=== PATIENT | male | born 1940 | race Caucasian/White ===

== ENCOUNTER 2016-07-05 06:57 | Day surgery (SDC) | payer MEDICARE ==
[~2016-07-05] VITALS: Ht 180.3 cm; Wt 110.4 kg
[~2016-07-05 06:57] MED LIST: ATEN-36 PO; DOXA1TAB PO; FURO-35 PO; POTA99TA16 PO; RIVA20TA PO; VALS40TA4 PO
[2016-07-05 07:00] VITALS: Ht 180.3 cm; Wt 110.4 kg
[2016-07-05] MEDS ORDERED: LIDOCAINE 1% (10mg/ml) 2ml SDV INJ ONE (07:00)
[2016-07-05] MEDS ORDERED: LR 1,000 ML IV SCH (07:00)
--- OUTSIDE RECORDS SUMMARY | 2016-07-05 07:09 | XMS REPORT | Referral Summary ---
Author Author [facility] Organization [facility] Address Unknown Phone Unavailable Care Team Providers Care Speech Lang Path Therapist Name Role Phone Julianne White Primary Care Physician [phone] Encounter VC Date(s): 01/06/15 - 01/06/15 [facility] [address] [place] [address] [place] [address]- Discharge Diagnosis: Benign essential hypertension Discharge Diagnosis: Atrial fibrillation Discharge Diagnosis: Episode of syncope Discharge Disposition: -Home or Self Care Attending Physician: Deep White MD Admitting Physician: Deep White MD Vital Signs Most recent to 1 oldest [Reference Range]: Temperature Tympanic 36.9 degC [36.6-38.1 degC] (01/06/15 3:24 PM) Peripheral Pulse 84 bpm Rate [60-100 bpm] (01/06/15 3:24 PM) Blood Pressure 124/84 mmHg [90-140/60-90 mmHg] (01/06/15 3:24 PM) SpO2 96 % (01/06/15 3:24 PM) Problem List Condition Effective Dates Status Health Status Informant Benign prostatic Resolved hypertrophy(Confirme d) CAD (coronary artery Resolved disease)(Confirmed) Chicken Resolved pox(Confirmed) Hypertension(Confirm Resolved ed) Irregular heart Resolved beat(Confirmed) Overweight(Confirmed Resolved ) Persistent atrial Active fibrillation(Confirm ed) Prostate Resolved cancer(Confirmed) Allergies, Adverse Reactions, Alerts No Known Medication Allergies Medications atenolol 100 mg oral tablet 1 tabs, Oral, Daily, # 90 tabs, 1 Refill(s), Pharmacy: [facility], Patient will need follow up appointment prior to next refill, 1 tabs Oral Daily Start Date: 07/13/14 Status: Ordered Centrum Silver oral tablet 1 tabs, Oral, Daily, 0 Refill(s) Start Date: 09/15/13 Status: Ordered Diovan 160 mg oral tablet 160 mg 1 tabs, Oral, Daily, 0.5 pill daily., # 90 tabs, 1 Refill(s), Pharmacy: [facility], 1 tabs Oral Daily Start Date: 09/30/14 Status: Ordered doxazosin 4 mg oral tablet 4 mg 1 tabs, Oral, Daily, # 90 tabs, 0 Refill(s), Pharmacy: [facility], Patient will need follow up appointment prior to next refill, 1 tabs Oral Daily Start Date: 10/12/14 Status: Ordered furosemide 40 mg oral tablet 40 mg 1 tabs, Oral, Daily, # 90 tabs, 1 Refill(s), Pharmacy: [facility], 1 tabs Oral Daily Start Date: 09/23/14 Status: Ordered potassium chloride 20 mEq oral tablet, extended release 20 mEq 1 tabs, Oral, Daily, # 90 tabs, 0 Refill(s), Pharmacy: [facility], 1 tabs Oral Daily Start Date: 12/09/14 Status: Ordered Vitamin D3 1000 intl units oral capsule 1,000 Intl_Units 1 caps, Oral, Daily, # 100 caps, 0 Refill(s) Start Date: 01/06/15 Status: Ordered Xarelto 20 mg oral tablet 1 tabs, Oral, qPM, # 90 tabs, 1 Refill(s), Pharmacy: [facility], 1 tabs Oral qPM Start Date: 07/22/14 Status: Ordered Results Hematology Most recent to 1 oldest [Reference Range]: WBC [4.8-10.8 5.5 10*3/uL 10*3/uL] (01/06/15 4:22 PM) RBC [4.60-6.20] 4.65 (01/06/15 4:22 PM) Hgb [14.0-18.0 14.4 gm/dL gm/dL] (01/06/15 4:22 PM) Hct [42.0-52.0 %] 42.5 % (01/06/15 4:22 PM) MCV [82.0-99.0 fL] 91.4 fL (01/06/15 4:22 PM) MCH [27.0-32.0 pg] 31.0 pg (01/06/15 4:22 PM) MCHC [32.0-36.0 33.9 gm/dL gm/dL] (01/06/15 4:22 PM) RDW [11.5-14.5 %] 14.0 % (01/06/15 4:22 PM) Platelet [150-400 187 10*3/uL 10*3/uL] (01/06/15 4:22 PM) MPV [8.8-14.8 fL] 11.3 fL (01/06/15 4:22 PM) Immature 0.2 % Granulocytes (01/06/15:22 PM) [0.0-1.0 %] Neutrophils [51-75 62 % %] (01/06/15 4:22 PM) Lymphocytes [20-46 21 % %] (01/06/15: PM) Monocytes [4-11 %] 15 % *HI* (01/06/15:22 PM) Eosinophils [0-4 %] 2 % (01/06/15:22 PM) Basophils [0-2 %] 1 % (01/06/15:22 PM) Neutro Absolute 3.41 10*3 [1.90-7.00 10*3] (01/06/15 4:22 PM) Lymph Absolute 1.14 10*3 [0.80-3.30 10*3] (01/06/15 4:22 PM) Pine Absolute 0.81 10*3 [0.30-1.00 10*3] (01/06/15 4:22 PM) Eos Absolute 0.09 10*3 [0.00-0.50 10*3] (01/06/15 4:22 PM) Baso Absolute 0.04 10*3 [0.00-0.20 10*3] (01/06/15 4:22 PM) Chemistry Most recent to 1 oldest [Reference Range]: Sodium Lvl [135-144 140 mEq/L mEq/L] (01/06/15:22 PM) Potassium Lvl 4.4 mEq/L [3.5-5.2 mEq/L] (01/06/15 4:22 PM) Chloride [99-111 105 mEq/L mEq/L] (01/06/15 4:22 PM) CO2 [23-31 mEq/L] 29 mEq/L (01/06/15 4:22 PM) AGAP [3-20] 6 (01/06/15 4:22 PM) BUN [8-26 mg/dL] 16 mg/dL (01/06/15 4:22 PM) Glucose Lvl [70-99 92 mg/dL mg/dL] (01/06/15 4:22 PM) Creatinine Lvl 1.05 mg/dL [0.72-1.25 mg/dL] (01/06/15 4:22 PM) eGFR [>60 mL/min] >60 mL/min 1 (01/06/15 4:22 PM) Calcium Lvl 10.0 mg/dL [8.9-10.5 mg/dL] (01/06/15 4:22 PM) Albumin Lvl [3.4-4.8 4.1 gm/dL gm/dL] (01/06/15 4:22 PM) Total Protein 6.7 gm/dL [6.2-8.1 gm/dL] (01/06/15 4:22 PM) Globulin [1.8-4.0 2.6 gm/dL gm/dL] (01/06/15 4:22 PM) ALT [0-55 U/L] 19 U/L (01/06/15 4:22 PM) AST [5-34 U/L] 20 U/L (01/06/15 4:22 PM) Alk Phos [40-150 82 U/L U/L] (01/06/15 4:22 PM) Bili Total [0.2-1.2 0.9 mg/dL mg/dL] (01/06/15 4:22 PM) TSH [0.35-4.94] 4.05 (01/06/15 4:22 PM) 1Result Comment: Multiply eGFR results by 1.21 for race. Immunizations Vaccine Date Refusal Reason influenza virus vaccine, inactivated 03/11/14 influenza virus vaccine, live 01/24/12 pneumococcal 23-polyvalent vaccine 08/02/05 tetanus-diphth toxoids (Td) adult/adol 10/12/97 Procedures Procedure Date Related Diagnosis Body Site Colonoscopy - hyperplastic polyp1 2005 Radical prostatectomy - Paige stage 6 2003 adenocarcinoma2 Prostate biopsy - negative3 2000 ORIF - left ankle fracture4 1983 Tonsillectomy 1944 Circumcision 1Hyperplastic polyp 2Gleason stage adenocarcinoma 3Negative 4Left ankle Social History Social History Type Response Smoking Status Former smoker; Type: Cigarettes; Tobacco use per day: 1 Pack ; Number of years: 15 Assessment and Plan Extracted from: Title: Ambulatory Patient Education Author: Deep White MD Date: 01/06/15 Family Medicine Syncope Syncope is a medical term for fainting or passing out. This means you lose consciousness and drop to the ground. People are generally unconscious for less than 5 minutes. You may have some muscle twitches for up to 15 seconds before waking up and returning to normal. Syncope occurs more often in older adults, but it can happen to anyone. While most causes of syncope are not dangerous, syncope can be a sign of a serious medical problem. It is important to seek medical care. CAUSES Syncope is caused by a sudden drop in blood flow to the brain. The specific cause is often not determined. Factors that can bring on syncope include: Taking medicines that lower blood pressure. Sudden changes in posture, such as standing up quickly. Taking more medicine than prescribed. Standing in one place for too long. Seizure disorders. Dehydration and excessive exposure to heat. Low blood sugar (hypoglycemia). Straining to have a bowel movement. Heart disease, irregular heartbeat, or other circulatory problems. Fear, emotional distress, seeing blood, or severe pain. SYMPTOMS Right before fainting, you may: Feel dizzy or light-headed. Feel nauseous. See all white or all black in your field of vision. Have cold, clammy skin. DIAGNOSIS Your health care provider will ask about your symptoms, perform a physical exam , and perform an electrocardiogram (ECG) to record the electrical activity of your heart. Your health care provider may also perform other heart or blood tests to determine the cause of your syncope which may include: Transthoracic echocardiogram (TTE). During echocardiography, sound waves are used to evaluate how blood flows through your heart. Transesophageal echocardiogram (TRICIA). Cardiac monitoring. This allows your health care provider to monitor your heart rate and rhythm in real time. Holter monitor. This is a portable device that records your heartbeat and can help diagnose heart arrhythmias. It allows your health care provider to track your heart activity for several days, if needed. Stress tests by exercise or by giving medicine that makes the heart beat faster. TREATMENT In most cases, no treatment is needed. Depending on the cause of your syncope, your health care provider may recommend changing or stopping some of your medicines. HOME CARE INSTRUCTIONS Have someone stay with you until you feel stable. Do not drive, use machinery, or play sports until your health care provider says it is okay. Keep all follow-up appointments as directed by your health care provider. Lie down right away if you start feeling like you might faint. Breathe deeply and steadily. Wait until all the symptoms have passed. Drink enough fluids to keep your urine clear or pale yellow. If you are taking blood pressure or heart medicine, get up slowly and take several minutes to sit and then stand. This can reduce dizziness. SEEK IMMEDIATE MEDICAL CARE IF: You have a severe headache. You have unusual pain in the chest, abdomen, or back. You are bleeding from your mouth or rectum, or you have black or tarry stool. You have an irregular or very fast heartbeat. You have pain with breathing. You have repeated fainting or seizure-like jerking during an episode. You faint when sitting or lying down. You have confusion. You have trouble walking. You have severe weakness. You have vision problems. If you fainted, call your local emergency services (911 in [place] Do not drive yourself to the hospital. MAKE SURE YOU: Understand these instructions. Will watch your condition. Will get help right away if you are not doing well or get worse. Document Released: 03/24/2006 Document Revised: 03/29/2014 Document Reviewed: [facility] Patient Information 2015 [employer] [facility]. This information is not intended to replace advice given to you by your health care provider. Make sure you discuss any questions you have with your health care provider. Follow Up With: Where: When: Deep White [address] [place] [address] [address]; [place] [address] Business (1) Within 3 to 5 days, only if needed Comments: Extracted from: Title: Office Visit Note Author: Deep White MD Date: 01/06/15 Assessment/Plan Atrial fibrillation Benign essential hypertension Episode of syncope Ordered: CBC w/ Differential Comprehensive Metabolic Panel Orders: valsartan, 160 mg 1 tabs, Oral, Daily, 0.5 pill daily., # 90 tabs, 1 Refill(s), Pharmacy: [facility], 1 tabs Oral Daily TSH 3rd Generation Addendum He was advised to reduce Diovan to one half pill daily. CBC, comprehensive metabolic by profile and TSH levels will be checked. He will be scheduled for 24 Holter recording. Cindy, Recheck appointment will be scheduled with Dr. Clemente. Neurology consultation will Deep E also be scheduled. on January 06, 2015 16:39:51 CDT
--- OUTSIDE RECORDS SUMMARY | 2016-07-05 07:09 | XMS REPORT | Referral Summary ---
Author Author [facility] Organization [facility] Address Unknown Phone Unavailable Care Team Providers Care Dope Sprayer Name Role Phone Han Worrell Primary Care Physician [phone] Encounter VC Date(s): 01/13/15 - 01/13/15 [facility] [address] [place] [address] Discharge Diagnosis: Near syncope Discharge Diagnosis: Persistent atrial fibrillation Discharge Disposition: 01-Home or Self Care Attending Physician: Vi Clemente MD Admitting Physician: Vi Clemente MD Vital Signs Most recent to 1 oldest [Reference Range]: Peripheral Pulse 52 bpm Rate [60-100 bpm] *LOW* (01/13/15 9:44 AM) Blood Pressure 120/84 mmHg [90-140/60-90 mmHg] (01/13/15 9:44 AM) Problem List Condition Effective Dates Status Health Status Informant Benign prostatic Resolved hypertrophy(Confirme d) CAD (coronary artery Resolved disease)(Confirmed) Chicken Resolved pox(Confirmed) Hypertension(Confirm Resolved ed) Irregular heart Resolved beat(Confirmed) Overweight(Confirmed Resolved ) Persistent atrial Active fibrillation(Confirm ed) Prostate Resolved cancer(Confirmed) Allergies, Adverse Reactions, Alerts No Known Medication Allergies Medications atenolol 100 mg oral tablet See Instructions, TAKE ONE TABLET BY MOUTH DAILY, # 30 tabs, 2 Refill(s), Pharmacy: [facility], TAKE ONE TABLET BY MOUTH DAILY Start Date: 05/16/15 Status: Ordered Centrum Silver oral tablet 1 tabs, Oral, Daily, 0 Refill(s) Start Date: 09/15/13 Status: Ordered Diovan 160 mg oral tablet 160 mg 1 tabs, Oral, Daily, 0.5 pill daily. MUST MAKE AN APPT WITH NEW PCP FOR ANY REFILLS, # 30 tabs, 0 Refill(s), Pharmacy: [facility], 1 tabs Oral Daily, Instr:0.5 pill daily. MUST MAKE AN APPT WITH NEW PCP FOR ANY REFILLS Start Date: 07/04/15 Status: Ordered doxazosin 4 mg oral tablet See Instructions, TAKE ONE TABLET BY MOUTH DAILY, # 30 tabs, 2 Refill(s), Pharmacy: [facility], TAKE ONE TABLET BY MOUTH DAILY Start Date: 05/16/15 Status: Ordered furosemide 40 mg oral tablet See Instructions, TAKE ONE TABLET BY MOUTH DAILY, # 90 tabs, 1 Refill(s), [facility]Rx: [facility], TAKE ONE TABLET BY MOUTH DAILY Start Date: 03/15/15 Status: Ordered potassium chloride 20 mEq oral tablet, extended release See Instructions, TAKE ONE TABLET BY MOUTH DAILY, # 90 tabs, 1 Refill(s), eRx: [facility], TAKE ONE TABLET BY MOUTH DAILY Start Date: 03/15/15 Status: Ordered valsartan 160 mg oral tablet 80 mg 0.5 tabs, Oral, Daily, 0 Refill(s) Start Date: 01/13/15 Status: Ordered Vitamin D3 1000 intl units oral capsule 1,000 Intl_Units 1 caps, Oral, Daily, # 100 caps, 0 Refill(s) Start Date: 01/06/15 Status: Ordered Xarelto 20 mg oral tablet See Instructions, TAKE ONE TABLET BY MOUTH IN THE EVENING, # 90 tabs, 3 Refill(s ), eRx: [facility], TAKE ONE TABLET BY MOUTH IN THE EVENING Start Date: 01/24/15 Status: Ordered Results No data available for this section Immunizations Vaccine Date Refusal Reason influenza virus vaccine, inactivated 01/11/15 influenza virus vaccine, inactivated 03/11/14 influenza virus vaccine, live 01/24/12 pneumococcal 23-polyvalent vaccine 08/02/05 tetanus-diphth toxoids (Td) adult/adol 10/12/97 Procedures Procedure Date Related Diagnosis Body Site Colonoscopy - hyperplastic polyp1 2005 Radical prostatectomy - Paige stage 6 2004 adenocarcinoma2 Prostate biopsy - negative3 2000 ORIF - left ankle fracture4 1983 Tonsillectomy 1944 Circumcision 1Hyperplastic polyp 2Gleason stage adenocarcinoma 3Negative 4Left ankle Social History Social History Type Response Smoking Status Former smoker; Type: Cigarettes; Tobacco use per day: 1 Pack ; Number of years: 15 Assessment and Plan Extracted from: Title: Office Visit Note Author: Vi Clemente MD Date: 01/13/15 Assessment/Plan Near syncope Persistent atrial fibrillation Ordered: Office Visit Level 3 Est [address] Return to Clinic Referrals to Other Providers Referred by: Vi Clemente MD
--- OUTSIDE RECORDS SUMMARY | 2016-07-05 07:09 | XMS REPORT | Referral Summary ---
Author Author [facility], [facility] Medicine Organization [facility] Address Unknown Phone Unavailable Care Team Providers Care Road Sign Installer Name Role Phone Han Worrell Primary Care Physician [phone] Encounter VC Date(s): 01/11/15 - 01/11/15 [facility] [place] [address] Discharge Disposition: 01-Home or Self Care Attending Physician: Han Worrell DO Admitting Physician: Han Worrell DO Referring Physician: Deep White MD Vital Signs No data available for this section Problem List Condition Effective Dates Status Health [...] DAILY, # 30 tabs, 2 Refill(s), Pharmacy: [facility], TAKE ONE TABLET BY MOUTH [...] Number of years: 15 Assessment and Plan No data available for this section
--- OUTSIDE RECORDS SUMMARY | 2016-07-05 07:09 | XMS REPORT | Continuity of Care Document ---
Author Author Yolis Lagos Address Unknown Phone Unavailable Care Team Providers Care Hoop Maker Name Role Phone [employer] Unavailable Unavailable Problems Medications Allergies, Adverse Reactions, Alerts Immunizations Results Vital Signs Encounters Procedures Plan of Care Social History Assessment and Plan Family History Value Date Source Advance Directives Order Name Results Value Date Source
--- OUTSIDE RECORDS SUMMARY | 2016-07-05 07:09 | XMS REPORT | Continuity of Care Document ---
Author Author Aileen Chavis CNA Ambulatory Address [address] [facility] [place] [address] Phone Care Team Providers Care Campaign Management Specialist Name Role Phone Deep White JORGE ALBERTO Unavailable Payers Payer name Insurance type Covered green party ID Authorization(s) Unknown Problems Condition Effective Dates (start - stop) Clinical Status Atrial Fibrillation - *Chronic Right Heart Failure - Improved Hypertension, Unspecified - *Chronic Influenza Vaccine - Hypertension, Unspecified - *Chronic Rosacea - *Controlled History of prostate cancer - *Chronic Cholelithiasis - *Chronic Hypertension, Unspecified - *Chronic Rosacea - *Chronic Personal history of malignant neoplasm of prostate - *Chronic Calculus of gallbladder without mention of cholecystitis, without mention of obstruction - *Chronic Atrial Fibrillation - Persistent Hypertension, Unspecified - *Fair Control Atrial Fibrillation - Persistent Hypertension, Unspecified - *Stable Personal history of malignant neoplasm of prostate - *Controlled Atrial Fibrillation - *Chronic VARICELLA UNCOMPLICATED - OVERWEIGHT - HYPERTENSION NOS - Atrial Fibrillation - *Acute Right Heart Failure - *Acute Hypertension, Unspecified - *Chronic Obesity - *Chronic Hypertension, Unspecified - *Chronic Rosacea - *Chronic Personal history of malignant neoplasm of prostate - *Chronic Calculus of gallbladder without mention of cholecystitis, without mention of obstruction - *Chronic Hypertension, Unspecified - *Chronic Atrial Fibrillation - *Chronic Hypertensive cardiovascular disease - *Chronic Edema extremities - *Chronic Overweight - *Chronic Personal history of malignant neoplasm of prostate - *Controlled Family History Family Member Diagnosis Age At Onset Status Father (Alive) CVA (Stroke) 65 (cause of ) Yes Mother (Unknown) Hypertension Yes Brother (Alive) Hypertension Yes Mother (Unknown) Alzheimer's Disease Yes Father (Unknown) Obesity Yes Father (Unknown) Hypertension Yes Brother (Unknown) tractor accident Yes Social History Social History Element Description Quantity alcohol beer Allergies, Adverse Reactions, Alerts Substance Reaction Severity Status Unknown Medications Medication Instructions Dosage Effective Dates (start - stop) Status Diovan HCT 160 mg-25 mg tablet Take 1 tablet by mouth every day. 2013 - No Longer Active Centrum Silver tablet take daily - Active atenolol 100 mg tablet Take 1 tablet by mouth every day. - Active Cardura 4 mg tablet Take 1 tablet by mouth every day. - Active potassium chloride ER 20 mEq tablet,extended release(part/cryst) take 1 tablet (20MEQ) by oral route every day with food 20 MEQ - Active Xarelto 20 mg tablet take 1 tablet (20MG) by oral route every day 20 MG - Active furosemide 40 mg tablet take 1 tablet (40MG) by oral route every day 40 MG - Active Diovan 160 mg tablet take 1 tablet (160MG) by oral route every day 160 MG - Active Immunizations Vaccine Date Status Comments Flu (split) (3 yrs or older) completed Td (adult) completed - Completed reason: source unspecified pneumo (2 yrs or older) (PPV23) completed - Completed reason: source unspecified Results Test Name Date and Time Measure Units Reference Range Abnormal Flag Comments Panel Description: Protime Pt Type 08:53:00 BASIC Drug 08:53:00 Warfarin Date-Time Last Meds 08:53:00 07/04/2013 9:30PM Protime-INR 08:53:00 1.1 Units Normal INR(no anticoagulant) 0.8-1.2 UnitsAbnormal INR (no anticoagulant) >1.2 UnitsRoutine Therapeutic INR 2.0-3.0 UnitsTherapeutic (High-Risk) INR 2.5-3.5 Units Vital Signs Date / Time: Height Weight Pulse Rate Blood Pressure Temperature /08:33:00 70.50 in 251.00 lbs 70 /min 142/90 mm[Hg] 98.3 F Procedures Procedure Date Unknown Encounters Encounter Location Date Patient Visit [facility] Patient Visit [facility] Patient [facility] Patient Visit [facility] Patient Visit [facility] Patient Visit [facility] Patient Visit [facility] Patient [facility] Patient [facility] Patient Visit [facility] Patient [facility] Patient Visit [facility] Patient Visit [facility] Card Patient Visit [facility] Urology Patient Visit [facility] Advance Directives Directive Effective Date Unknown
--- OUTSIDE RECORDS SUMMARY | 2016-07-05 07:09 | XMS REPORT | Referral Summary ---
Author Author [facility] Organization [facility] Address Unknown Phone Unavailable Care Team Providers Care Global Director Air And Climate Change Name Role Phone Julianne White Primary Care Physician [phone] Encounter Date(s): 09/22/14 - 09/22/14 [facility] [address] [place] [address] Discharge Diagnosis: Atrial fibrillation Discharge Disposition: 01-Home or Self Care Attending Physician: Rc Kahn MD Admitting Physician: Rc Kahn MD Referring Physician: Deep White MD Vital Signs Most recent to 1 oldest [Reference Range]: Peripheral Pulse 64 bpm Rate [60-100 bpm] (09/22/14 9:50 AM) Blood Pressure 112/66 mmHg [90-140/60-90 mmHg] (09/22/14 9:50 AM) Problem List Condition Effective Dates Status [...] TABLET BY MOUTH DAILY, # 90 tabs, eRx: [facility], TAKE ONE TABLET BY MOUTH DAILY Start Date: 01/16/15 Status: Ordered Centrum Silver oral tablet 1 tabs, Oral, Daily, 0 Refill(s) Start Date: 09/15/13 Status: Ordered doxazosin 4 mg oral tablet See Instructions, TAKE ONE TABLET BY MOUTH DAILY, # 90 tabs, eRx: [facility], TAKE ONE TABLET BY MOUTH DAILY Start Date: 01/16/15 Status: Ordered furosemide 40 mg oral tablet 40 mg 1 tabs, Oral, Daily, # 90 tabs, 1 Refill(s), Pharmacy: [facility], 1 tabs Oral Daily Start Date: 09/23/14 Status: Ordered potassium chloride 20 mEq oral tablet, extended release 20 mEq 1 tabs, Oral, Daily, # 90 tabs, 0 Refill(s), Pharmacy: [facility], 1 tabs Oral Daily Start Date: 12/09/14 Status: Ordered valsartan 160 mg oral tablet [...] Extracted from: Title: Office Visit Note Author: Rc Kahn MD Date: 09/22/14 Assessment/Plan 1.Atrial fibrillation Essential hypertension Discussion: Overall, this gentleman seems to be doing extremely well. We advised him to continue to limit alcohol to perhaps one beer a week. We advised him to call us if he has any symptoms of concern. We reminded him of his risk for accidents or injuries.
--- OUTSIDE RECORDS SUMMARY | 2016-07-05 07:09 | XMS REPORT | Referral Summary ---
Author Author [facility] Organization [facility] Address Unknown Phone Unavailable Care Team Providers Care Director Of Hospitality Name Role Phone Julianne White Primary Care Physician [phone] Encounter Date(s): 09/22/14 - 09/22/14 [facility] [address] [place] [address] Discharge Diagnosis: Atrial fibrillation Discharge Disposition: 01-Home [...]
--- OUTSIDE RECORDS SUMMARY | 2016-07-05 07:09 | XMS REPORT | Referral Summary ---
Author Author [facility] Organization [facility] Address Unknown Phone Unavailable Care Team Providers Care Mannequin Maker Name Role Phone Julianne White Primary Care Physician [phone] Encounter Date(s): 04/14/15 - 04/14/15 [facility] [address] [place] [id number] Discharge Diagnosis: Transient neurological symptoms Discharge Diagnosis: Persistent atrial fibrillation Discharge Disposition: 01-Home or Self Care Attending Physician: Vi Clemente MD Admitting Physician: Vi Clemente MD Vital Signs Most recent to 1 oldest [Reference Range]: Peripheral Pulse 74 bpm Rate [60-100 bpm] (04/14/15 12:51 PM) Blood Pressure 102/72 mmHg [90-140/60-90 mmHg] (04/14/15 12:51 PM) Problem List Condition Effective Dates Status [...] - hyperplastic polyp1 2005 Radical prostatectomy - [place] stage 6 2004 adenocarcinoma2 Prostate biopsy - negative3 2000 ORIF - left ankle fracture4 1983 Tonsillectomy 1944 Circumcision 1Hyperplastic polyp 2Gleason stage adenocarcinoma 3Negative 4Left ankle Social History Social History Type Response Smoking Status Former smoker; Type: Cigarettes; Tobacco use per day: 1 Pack ; Number of years: 15 Assessment and Plan Extracted from: Title: Office Visit Note Author: Vi Clemente MD Date: 04/14/15 Assessment/Plan Persistent atrial fibrillation Ordered: Office Visit Level 3 Est 93333 Transient neurological symptoms Dictation performed with [employer] voice recognition
--- OUTSIDE RECORDS SUMMARY | 2016-07-05 07:09 | XMS REPORT | Referral Summary ---
Author Author [facility] Organization [facility] Address Unknown Phone Unavailable Care Team Providers Care Blue Print Control Clerk Name Role Phone Han Worrell Primary Care Physician [phone] Encounter VC Date(s): 06/01/15 - 06/01/[address] [facility] [address] [facility] [place] [address] [place] [id number] Discharge Diagnosis: Paroxysmal spells Discharge Disposition: 01-Home or Self Care Attending Physician: Chadd Guzman MD Admitting Physician: Chadd Guzman MD Vital Signs No data available for [...] DAILY, # 90 tabs, 1 Refill(s), eRx: [facility], TAKE ONE TABLET BY MOUTH [...] - hyperplastic polyp1 2005 Radical prostatectomy - [place] stage 6 2003 adenocarcinoma2 Prostate biopsy - [...]
--- OUTSIDE RECORDS SUMMARY | 2016-07-05 07:09 | XMS REPORT | Referral Summary ---
Author Author [facility] Organization [facility] Address Unknown Phone Unavailable Care Team Providers Care Bobbin Trucker Name Role Phone Julianne White Primary Care Physician [phone] Encounter Date(s): 09/22/14 - 09/22/14 [facility] [address] [place] [id number] Discharge Diagnosis: Atrial fibrillation Discharge Disposition: 01-Home or Self Care Attending Physician: Rc Kahn MD Admitting Physician: cR Kahn MD Referring Physician: Deep White MD [...]
--- OUTSIDE RECORDS SUMMARY | 2016-07-05 07:09 | XMS REPORT | Referral Summary ---
Author Author [facility] Organization [facility] Address Unknown Phone Unavailable Care Team Providers Care Electrician Ship Name Role Phone Julianne White Primary Care Physician [phone] Encounter Date(s): 01/13/15 - 01/13/15 [facility] [address] [place] [id number] Discharge Diagnosis: Near syncope Discharge Diagnosis: Persistent [...] # 90 tabs, 0 Refill(s), Pharmacy: [facility], 1 [...] - hyperplastic polyp1 2005 Radical prostatectomy - [place] stage 6 2004 adenocarcinoma2 Prostate biopsy - [...] fibrillation Ordered: Office Visit Level 3 Est 59537 Return to Clinic Referrals to Other Providers Referred by: Vi Clemente MD
--- OUTSIDE RECORDS SUMMARY | 2016-07-05 07:09 | XMS REPORT | Referral Summary ---
Author Author [facility] Organization [facility] Address Unknown Phone Unavailable Care Team Providers Care Supervisor Drying And Winding Name Role Phone Han Worrell Primary Care Physician [phone] Encounter VC Date(s): 05/23/16 - 05/23/16 [facility] [address] [place] [address]- Discharge Diagnosis: HTN (hypertension) Discharge Diagnosis: Adult general medical exam Discharge Disposition: -Home or Self Care Attending Physician: Han Worrell DO Admitting Physician: Han Worrell DO Vital Signs Most recent to 1 oldest [Reference Range]: Temperature Tympanic 36.7 degC [36.6-38.1 degC] (05/23/16 8:01 AM) Peripheral Pulse 83 bpm Rate [60-100 bpm] (05/23/16 8:01 AM) Respiratory Rate 16 br/min [14-20 br/min] (05/23/16 8:01 AM) Blood Pressure 128/68 mmHg [90-140/60-90 mmHg] (05/23/16 8:01 AM) SpO2 97 % (05/23/16 8:01 AM) Problem List Condition Effective Dates Status Health Status Informant Benign prostatic Resolved hypertrophy(Confirme d) CAD (coronary artery Resolved disease)(Confirmed) Chicken Resolved pox(Confirmed) History of Active shingles(Confirmed) Hypertension(Confirm Resolved ed) Irregular heart Resolved beat(Confirmed) Obesity(Confirmed) Active patient Overweight(Confirmed Resolved ) Persistent atrial Active fibrillation(Confirm ed) Prostate Resolved cancer(Confirmed) Acne Active rosacea(Confirmed) Allergies, Adverse Reactions, Alerts No Known Allergies Medications atenolol 100 mg oral tablet 100 mg 1 tabs, Oral, Daily, X 90 days, # 90 tabs, 3 Refill(s), Pharmacy: [facility], 1 tabs Oral Daily,x90 days Start Date: 05/23/16 Stop Date: 05/18/17 Status: Ordered Centrum Silver oral tablet 1 tabs, Oral, Daily, 0 Refill(s) Start Date: 09/15/13 Status: Ordered doxazosin 4 mg oral tablet 4 mg 1 tabs, Oral, Daily, X 90 days, # 90 tabs, 3 Refill(s), Pharmacy: [facility], 1 tabs Oral Daily,x90 days Start Date: 05/23/16 Stop Date: 05/18/17 Status: Ordered furosemide 40 mg oral tablet 40 mg 1 tabs, Oral, Daily, X 90 days, # 90 tabs, 3 Refill(s), Pharmacy: [facility], 1 tabs Oral Daily,x90 days Start Date: 05/23/16 Stop Date: 05/18/17 Status: Ordered potassium chloride 20 mEq oral tablet, extended release 20 mEq 1 tabs, Oral, Daily, X 90 days, # 90 tabs, 3 Refill(s), Pharmacy: [facility], 1 tabs Oral Daily,x90 days Start Date: 05/23/16 Stop Date: 05/18/17 Status: Ordered valsartan 160 mg oral tablet 160 mg 1 tabs, Oral, Daily, # 90 tabs, 1 Refill(s), Pharmacy: [facility], 1 tabs Oral Daily,x90 days Start Date: 05/23/16 Stop Date: 11/19/16 Status: Ordered Vitamin D3 1000 intl units oral capsule 1,000 Intl_Units 1 caps, Oral, Daily, # 100 caps, 0 Refill(s) Start Date: 01/06/15 Status: Ordered Xarelto 20 mg oral tablet 20 mg 1 tabs, Oral, Daily, X 90 days, # 90 tabs, 3 Refill(s), Pharmacy: [facility], 1 tabs Oral Daily,x90 days Start Date: 05/23/16 Stop Date: 05/18/17 Status: Ordered Results No data available for this section Immunizations Given and Recorded Vaccine Date Status Refusal Reason tetanus/diphth/pertuss (Tdap) adult/adol 11/16/15 Given influenza virus vaccine, inactivated 01/11/15 Recorded influenza virus vaccine, inactivated 03/11/14 Recorded influenza virus vaccine, live 01/24/12 Given pneumococcal 13-valent conjugate vaccine 11/16/15 Given pneumococcal 23-polyvalent vaccine 08/02/05 Recorded tetanus-diphth toxoids (Td) adult/adol 10/12/97 Given Procedures Procedure Date Related Diagnosis Body Site Colonoscopy - hyperplastic polyp1 2005 Radical prostatectomy - [place] stage 6 2004 adenocarcinoma2 Prostate biopsy - negative3 2000 ORIF - left ankle fracture4 1984 Tonsillectomy 194 Circumcision 1Hyperplastic polyp 2Gleason stage adenocarcinoma 3Negative 4Left ankle Social History Social History Type Response Smoking Status Former smoker; Type: Cigarettes; Tobacco use per day: 1 Pack ; Number of years: 15 Assessment and Plan Extracted from: Title: Office Visit Note Author: Han Worrell DO Date: 05/23/16 Assessment/Plan 1.HTN (hypertension) 1. Blood pressure is controlled at this time. 2. Continue with low salt diet. 3. Continue with current medications. Ordered: CBC w/ Differential Comprehensive Metabolic Panel Lipid Panel Office Visit Level 4 Est 69633 TSH with Reflex Free T4 Adult general medical exam 1. This is a well-developed well-nourished 75-year-old gentleman in relatively good health. 2. Healthy lifestyle changes recommended. 3. Daily exercise recommended. 4. Weight loss recommended. 5. Follow-up yearly for wellness visit. 6. Remaining labs ordered, report is pending. 7. Despite having shingles, I advised him to consider the shingles vaccination. 8. His last colonoscopy was 10 years ago, we will set him up with Dr. Irby for repeat colonoscopy. Ordered: Office Visit Level 4 Est 93592 TSH with Reflex Free T4
--- OUTSIDE RECORDS SUMMARY | 2016-07-05 07:09 | XMS REPORT | Referral Summary ---
Author Author [facility] Organization [facility] Address Unknown Phone Unavailable Care Team Providers Care Assembler Handbags Name Role Phone Julianne White Primary Care Physician [phone] Encounter VC Date(s): 09/23/14 - 09/23/14 [facility] [address] [place] [address] [address] [place] [address]- Discharge Diagnosis: Cerumen impaction Discharge Diagnosis: Persistent atrial fibrillation Discharge Diagnosis: Prostate cancer Discharge Diagnosis: Hypertension Discharge Diagnosis: Osteopenia. Discharge Disposition: 01-Home or Self Care Attending Physician: Deep White MD Admitting Physician: Deep White MD Vital Signs Most recent to 1 oldest [Reference Range]: Temperature Tympanic 35.8 degC [36.6-38.1 degC] *LOW* (09/23/14 9:10 AM) Peripheral Pulse 64 bpm Rate [60-100 bpm] (09/23/14 9:10 AM) Respiratory Rate 16 br/min [14-20 br/min] (09/23/14 9:10 AM) Blood Pressure 126/82 mmHg [90-140/60-90 mmHg] (09/23/14 9:10 AM) SpO2 99 % (09/23/14 9:10 AM) Problem List Condition Effective Dates Status [...] EVENING Start Date: 01/24/15 Status: Ordered Results Chemistry Most recent to 1 oldest [Reference Range]: Sodium Lvl [135-144 141 mEq/L mEq/L] (09/23/14 10:25 AM) Potassium Lvl 4.5 mEq/L [3.5-5.2 mEq/L] (09/23/14 10:25 AM) Chloride [99-111 107 mEq/L mEq/L] (09/23/14 10:25 AM) CO2 [23-31 mEq/L] 30 mEq/L (09/23/14 10:25 AM) AGAP [3-20] 4 (09/23/14 10:25 AM) BUN [8-26 mg/dL] 16 mg/dL (09/23/14 10:25 AM) Glucose Lvl [70-99 93 mg/dL mg/dL] (09/23/14 10:25 AM) Creatinine Lvl 0.86 mg/dL [0.72-1.25 mg/dL] (09/23/14 10:25 AM) eGFR [>60 mL/min] >60 mL/min 1 (09/23/14 10:25 AM) Calcium Lvl 10.5 mg/dL [8.9-10.5 mg/dL] (09/23/14 10:25 AM) Albumin Lvl [3.4-4.8 4.1 gm/dL gm/dL] (09/23/14 10:25 AM) Total Protein 6.7 gm/dL [6.2-8.1 gm/dL] (09/23/14 10:25 AM) Globulin [1.8-4.0 2.6 gm/dL gm/dL] (09/23/14 10:25 AM) ALT [0-55 U/L] 19 U/L (09/23/14 10:25 AM) AST [5-34 U/L] 18 U/L (09/23/14 10:25 AM) Alk Phos [40-150 82 U/L U/L] (09/23/14 10:25 AM) Bili Total [0.2-1.2 1.1 mg/dL mg/dL] (09/23/14 10:25 AM) TSH [0.35-4.94] 4.44 (09/23/14 10:25 AM) 1Result Comment: Multiply eGFR results by 1.21 [...] Patient Education Author: Deep White MD Date: Family Medicine Atrial Fibrillation Atrial fibrillation is a type of irregular heart rhythm (arrhythmia ). During atrial fibrillation, the upper chambers of the heart (atria ) quiver continuously in a chaotic pattern. This causes an irregular and often rapid heart rate. Atrial fibrillation is the result of the heart becoming overloaded with disorganized signals that tell it to beat. These signals are normally released one at a time by a part of the right atrium called the sinoatrial node. They then travel from the atria to the lower chambers of the heart (ventricles ), causing the atria and ventricles to contract and pump blood as they pass. In atrial fibrillation, parts of the atria outside of the sinoatrial node also release these signals. This results in two problems. First, the atria receive so many signals that they do not have time to fully contract. Second, the ventricles, which can only receive one signal at a time, beat irregularly and out of rhythm with the atria. There are three types of atrial fibrillation: ParoxysmalParoxysmal atrial fibrillation starts suddenly and stops on its own within a week. PersistentPersistent atrial fibrillation lasts for more than a week. It may stop on its own or with treatment. PermanentPermanent atrial fibrillation does not go away. Episodes of atrial fibrillation may lead to permanent atrial fibrillation. Atrial fibrillation can prevent your heart from pumping blood normally. It increases your risk of stroke and can lead to heart failure. CAUSES Heart conditions, including a heart attack, heart failure, coronary artery disease, and heart valve conditions. Inflammation of the sac that surrounds the heart (pericarditis ). Blockage of an artery in the lungs (pulmonary embolism ). Pneumonia or other infections. Chronic lung disease. Thyroid problems, especially if the thyroid is overactive (hyperthyroidism ). Caffeine, excessive alcohol use, and use of some illegal drugs. Use of some medications, including certain decongestants and diet pills. Heart surgery. defects. Sometimes, no cause can be found. When this happens, the atrial fibrillation is called lone atrial fibrillation. The risk of complications from atrial fibrillation increases if you have lone atrial fibrillation and you are age 60 years or older. RISK FACTORS Heart failure. Coronary artery disease Diabetes mellitus. High blood pressure (hypertension ). Obesity. Other arrhythmias. Increased age. SYMPTOMS A feeling that your heart is beating rapidly or irregularly. A feeling of discomfort or pain in your chest. Shortness of breath. Sudden lightheadedness or weakness. Getting tired easily when exercising. Urinating more often than normal (mainly when atrial fibrillation first begins). In paroxysmal atrial fibrillation, symptoms may start and suddenly stop. DIAGNOSIS Your caregiver may be able to detect atrial fibrillation when taking your pulse. Usually, testing is needed to diagnosis atrial fibrillation. Tests may include: Electrocardiography. During this test, the electrical impulses of your heart are recorded while you are lying down. Echocardiography. During echocardiography, sound waves are used to evaluate how blood flows through your heart. Stress test. There is more than one type of stress test. If a stress test is needed, ask your caregiver about which type is best for you. Chest X-ray exam. Blood tests. Computed tomography (CT). TREATMENT Treating any underlying conditions. For example, if you have an overactive thyroid, treating the condition may correct atrial fibrillation. Medication. Medications may be given to control a rapid heart rate or to prevent blood clots, heart failure, or a stroke. Procedure to correct the rhythm of the heart: Electrical cardioversion. During electrical cardioversion, a controlled, low-energy shock is delivered to the heart through your skin. If you have chest pain, very low pressure blood pressure, or sudden heart failure, this procedure may need to be done as an emergency. Catheter ablation. During this procedure, heart tissues that send the signals that cause atrial fibrillation are destroyed. Maze or minimaze procedure. During this surgery, thin lines of heart tissue that carry the abnormal signals are destroyed. The maze procedure is an open-heart surgery. The minimaze procedure is a minimally invasive surgery. This means that small cuts are made to access the heart instead of a large opening. Pulmonary venous isolation. During this surgery, tissue around the veins that carry blood from the lungs (pulmonary veins) is destroyed. This tissue is thought to carry the abnormal signals. HOME CARE INSTRUCTIONS Take medications as directed by your caregiver. Only take medications that your caregiver approves. Some medications can make atrial fibrillation worse or recur. If blood thinners were prescribed by your caregiver, take them exactly as directed. Too much can cause bleeding. Too little and you will not have the needed protection against stroke and other problems. Perform blood tests at home if directed by your caregiver. Perform blood tests exactly as directed. Quit smoking if you smoke. Do not drink alcohol. Do not drink caffeinated beverages such as coffee, soda, and some teas. You may drink decaffeinated coffee, soda, or tea. Maintain a healthy weight. Do not use diet pills unless your caregiver approves. They may make heart problems worse. Follow diet instructions as directed by your caregiver. Exercise regularly as directed by your caregiver. Keep all follow-up appointments. PREVENTION The following substances can cause atrial fibrillation to recur: Caffeinated beverages. Alcohol. Certain medications, especially those used for breathing problems. Certain herbs and herbal medications, such as those containing ephedra or ginseng. Illegal drugs such as cocaine and amphetamines. Sometimes medications are given to prevent atrial fibrillation from recurring. Proper treatment of any underlying condition is also important in helping prevent recurrence. SEEK MEDICAL CARE IF: You notice a change in the rate, rhythm, or strength of your heartbeat. You suddenly begin urinating more frequently. You tire more easily when exerting yourself or exercising. SEEK IMMEDIATE MEDICAL CARE IF: You develop chest pain, abdominal pain, sweating, or weakness. You feel sick to your stomach (nauseous ). You develop shortness of breath. You suddenly develop swollen feet and ankles. You feel dizzy. You face or limbs feel numb or weak. There is a change in your vision or speech. MAKE SURE YOU: Understand these instructions. Will watch your condition. Will get help right away if you are not doing well or get worse. Document Released: 03/24/2006 Document Revised: 07/19/2013 Document Reviewed: [facility] Patient Information 2014 [employer] [facility]. Follow Up With: Where: When: Deep White [address] [place] [address] Drive; [place] [address] [employer] In 4 months 01/23/2015 Comments: Extracted from: Title: Office Visit Note Author: Deep White MD Date: 09/23/14 Assessment/Plan Cerumen impaction These will be lavaged out today. Hypertension This is well controlled. He will continue his same medication. Ordered: Comprehensive Metabolic Panel Osteopenia. Repeat bone densitometry will be ordered. Ordered: BD Bone Density DEXA Axial Skeleton Persistent atrial fibrillation He continues on anticoagulation therapy. Ordered: TSH 3rd Generation Prostate cancer This is in remission. Addendum Rosacea: This is unchanged. by Deep White MD on September 23, 2014 10:02:23 CDT
--- OUTSIDE RECORDS SUMMARY | 2016-07-05 07:09 | XMS REPORT | Referral Summary ---
Author Author [facility] Organization [facility] Address Unknown Phone Unavailable Care Team Providers Care Emergency Medical Technician Name Role Phone Han Worrell Primary Care Physician [phone] Encounter VC Date(s): 05/02/15 - 05/02/[address] [facility] [address] [facility] [address] [place] [id number] Discharge Diagnosis: Atrial fibrillation Discharge Diagnosis: Spells of decreased attentiveness Discharge Disposition: 01-Home or Self Care Attending Physician: Chadd Guzman MD Admitting Physician: Chadd Guzman MD Vital Signs Most recent to 1 oldest [Reference Range]: Peripheral Pulse 80 bpm Rate [60-100 bpm] (05/02/15 9:32 AM) Blood Pressure 102/72 mmHg [90-140/60-90 mmHg] (05/02/15 9:32 AM) Problem List Condition Effective Dates Status [...] TABLET BY MOUTH DAILY, # 30 tabs, 0 Refill(s), Pharmacy: [facility], TAKE ONE TABLET BY MOUTH DAILY Start Date: 04/18/15 Status: Ordered Centrum Silver oral tablet 1 tabs, Oral, Daily, 0 Refill(s) Start Date: 09/15/13 Status: Ordered doxazosin 4 mg oral tablet See Instructions, TAKE ONE TABLET BY MOUTH DAILYKeep appt for est care*, # 30 tabs, 0 Refill(s), Pharmacy: [facility] TAKE ONE TABLET BY MOUTH DAILYKeep appt for est care* Start Date: 04/18/15 Status: Ordered furosemide 40 mg oral tablet [...] - hyperplastic polyp1 2005 Radical prostatectomy - [place] stage 6 2004 adenocarcinoma2 Prostate biopsy - negative3 2000 ORIF - left ankle fracture4 1983 Tonsillectomy 1944 Circumcision 1Hyperplastic polyp 2Gleason stage adenocarcinoma 3Negative 4Left ankle Social History Social History Type Response Smoking Status Former smoker; Type: Cigarettes; Tobacco use per day: 1 Pack ; Number of years: 15 Assessment and Plan Extracted from: Title: Neurology Initial Office Author: Chadd Guzman MD Date: 05/02/15 Visit Note Assessment/Plan 1.Spells of decreased attentiveness Unclear etiology His spells do not sound like hypotensive/orthostatic as he did not really lose consciousness (stayed standing, eyes open). Differential diagnosis includes: Complex partial seizures (although presentation is atypical without post ictal state), or conversion disorder ( although he does not have any psychiatric illness). I am not sure why both episodes occurred in the exact same setting watching football and after prolonged standing in a confined space. His neurologic examination is completely normal and he denies any neurologic symptoms I will obtain a brain MRI w/wo contrast and a routine EEG for further evaluation If workup unremarkable and the patient continues to have more episodes, I will start a therapeutic trial of Keppra. I will update him with results of studies and I also asked him to inform me immediately if he has further episodes. 2.Atrial fibrillation Although he has history of atrial fibrillation, I doubt that these episodes are cardiac. He was evaluated by [facility] whofelt that neurologic etiology has to be considered. Continue management by PCPand financial specialist. Time spent with the patient: 45min with greater than 50% of the office visit spent in counseling the patient, coordination of care, reviewing diagnostic studies, treatment options, follow up plan, and answering the patient's questions. Return to clinic in4 months
--- OUTSIDE RECORDS SUMMARY | 2016-07-05 07:09 | XMS REPORT | Continuity of Care Document ---
Author Author [facility] Organization [facility] Address Unknown Phone Unavailable Allergies Active Description Code Type Severity Reaction Onset Reported/Identified Relationship to Patient Clinical Status Yes No Known Medication Allergies NKMA N/A N/A 09/15/2013 Yes No Known Allergies NKMA N/A N/A 08/25/2015 Medications Problems Procedures Results Encounters ACCT No. Visit Date/Time Discharge Status Pt. Type Provider Facility Loc./Unit Complaint [id number] 07/05/2013 08:33:00 07/05/2013 23 :59:59 CLS Outpatient [id number] 07/02/2013 09:08:00 07/02/2013 23 :59:59 CLS Outpatient [id number] 05/28/2013 08:44:00 05/28/2013 23 :59:59 CLS Outpatient
--- OUTSIDE RECORDS SUMMARY | 2016-07-05 07:09 | XMS REPORT | Continuity of Care Document ---
Author Author Aileen Chavis CNA Ambulatory Address [address] [facility] [place] [address] Phone Care Team Providers Care Presiding Judge Name Role Phone Deep White JORGE ALBERTO Unavailable Payers Payer name Insurance type Covered democrat ID Authorization(s) Unknown Problems Condition Effective Dates (start - stop) Clinical Status Atrial Fibrillation - *Acute Right Heart Failure - *Acute Hypertension, Unspecified - *Chronic Obesity - *Chronic Influenza Vaccine - Hypertension, Unspecified [...] - HYPERTENSION NOS - Atrial Fibrillation - *Chronic Right Heart Failure - Improved Hypertension, Unspecified - *Chronic Hypertension, Unspecified - *Chronic Rosacea [...] Dosage Effective Dates (start - stop) Status Coumadin 5 mg tablet take 1 Tablet by Oral route every day 0 MG 2013 - No Longer Active furosemide 40 mg tablet take 1 tablet (40MG) by oral route every day 40 MG - No Longer Active Centrum Silver tablet [...] Reference Range Abnormal Flag Comments Panel Description: CBC WBC 11:24:00 6.9 1000/cmm 5.0-10.0 RBC 11:24:00 4.77 mil/cmm 4.20-6.00 HGB 11:24:00 15.0 g/dL 14.0-18.0 HCT 11:24:00 44.3 % 40.0-54.0 MCV 11:24:00 92.9 fL 80.0-96.0 MCH 11:24:00 31.4 pg 26.0-34.0 MCHC 11:24:00 33.9 g/dL 32.0-36.0 RDW 11:24:00 12.7 % 0.0-14.5 PLT 11:24:00 234 1000/cmm 150-400 SEG 11:24:00 69 % 50-70 LYMPH 11:24:00 17 % 20-40 L MONO 11:24:00 12 % 4-8 H EOSIN 11:24:00 2 % <6 BASO 11:24:00 1 % <2 Panel Description: Urinalysis with Reflex Microscopic Site. 11:24:00 Midstream Color 11:24:00 Straw Clarity 11:24:00 Clear Volume Centrifuged 11:24:00 12 mls Specific Parksley-C 11:24:00 1.010 1.005-1.025 pH-C 11:24:00 7 5.0-8.0 Leukocytes-C 11:24:00 neg Cody/uL Negative Nitrites-C 11:24:00 neg Negative Protein-C 11:24:00 neg mg/dL Negative [id number] 11:24:00 norm mg/dL Normal Ketones-C 11:24:00 neg mg/dL Negative Urobilinogen-C 11:24:00 1mg/dl mg/dL Normal A Bilirubin-C 11:24:00 neg mg/dL Negative Blood-C 11:24:00 neg Pramod/uL Negative Panel Description: Culture If Indicated With Sensitivity Culture If Indicated With Sensitivity 11:24:00 No Culture Indicated Panel Description: Protime Pt Type 11:24:00 basic Drug 11:24:00 No Meds Date-Time Last Meds 11:24:00 07/02/2013 11:23AM Protime-INR 11:24:00 1.0 Units Normal INR(no anticoagulant) 0.8-1.2 UnitsAbnormal INR (no anticoagulant) >1.2 UnitsRoutine Therapeutic INR 2.0-3.0 UnitsTherapeutic (High-Risk) INR 2.5-3.5 Units Vital Signs Date / Time: Height Weight Pulse Rate Blood Pressure Temperature /09:08:00 70.50 in 257.00 lbs 78 /min 134/96 mm[Hg] 97.7 F Procedures Procedure Date ENOXAPARIN SODIUM INJECTION 10 MG THER/PROPH/DIAG INJ, SC/IM Encounters Encounter Location Date Patient Visit [facility] Patient Visit [facility] Patient Visit [facility] Patient Visit [facility] Patient Visit [facility] Card Patient Visit [facility] Patient Visit [facility] Patient [facility] Patient Visit [facility] Patient Visit [facility] Patient [facility] Patient Visit [facility] Patient Visit [facility] Card Patient Visit [facility] Urology Patient Visit [facility] Advance Directives Directive Effective Date Unknown
--- OUTSIDE RECORDS SUMMARY | 2016-07-05 07:10 | XMS REPORT | Referral Summary ---
Author Author [facility] Organization [facility] Address Unknown Phone Unavailable Care Team Providers Care Helpdesk Manager Name Role Phone Julianne White Primary Care Physician [phone] Encounter Date(s): 01/13/15 - 01/13/15 [facility] [address] [place] [id number] Discharge Diagnosis: Near syncope Discharge Diagnosis: Persistent [...] - hyperplastic polyp1 2005 Radical prostatectomy - [place] stage 6 2004 adenocarcinoma2 Prostate biopsy - [...] fibrillation Ordered: Office Visit Level 3 Est 15082 Return to Clinic Referrals to Other Providers Referred by: Vi Clemente MD
--- OUTSIDE RECORDS SUMMARY | 2016-07-05 07:10 | XMS REPORT | Referral Summary ---
Author Author [facility] Organization [facility] Address Unknown Phone Unavailable Care Team Providers Care Stitcher Set Up Operator Automatic Name Role Phone Julianne White Primary Care Physician [phone] Encounter Date(s): 09/22/14 - 09/22/14 [facility] [address] [place] [address] [place] [address] Discharge Diagnosis: Atrial fibrillation Discharge Disposition: [...]
--- OUTSIDE RECORDS SUMMARY | 2016-07-05 07:10 | XMS REPORT | Referral Summary ---
Author Author [facility] Organization [facility] Address Unknown Phone Unavailable Care Team Providers Care Client Services Coordinator Name Role Phone Julianne White Primary Care Physician [phone] Encounter Date(s): 01/13/15 - 01/13/15 [facility] [address] [place] [address] [address] Discharge Diagnosis: Near syncope Discharge Diagnosis: Persistent [...] - hyperplastic polyp1 2005 Radical prostatectomy - [place] stage 6 2004 adenocarcinoma2 Prostate biopsy - [...] fibrillation Ordered: Office Visit Level 3 Est 39587 Return to Clinic Referrals to Other Providers Referred by: Vi Clemente MD
--- OUTSIDE RECORDS SUMMARY | 2016-07-05 07:10 | XMS REPORT | Referral Summary ---
Author Author [facility] Organization [facility] Address Unknown Phone Unavailable Care Team Providers Care Wheat Farmer Name Role Phone Han Worrell Primary Care Physician [phone] Encounter VC Date(s): 01/06/15 - 01/06/15 [facility] [address] [place] [address] [place] [address] Discharge Diagnosis: Benign essential hypertension Discharge Diagnosis: Atrial fibrillation Discharge Diagnosis: Episode of syncope Discharge Disposition: 01-Home or Self Care Attending [...] # 90 tabs, 3 Refill(s ), eRx: [facility], TAKE ONE TABLET BY MOUTH IN THE EVENING Start Date: 01/24/15 Status: Ordered Results Hematology Most recent to [...] 4:22 PM) MPV [8.8-14.8 fL] 11.3 fL (01/06/15:22 PM) Immature 0.2 % Granulocytes (01/06/15:22 PM) [0.0-1.0 %] Neutrophils [51-75 62 % %] (01/06/15:22 PM) Lymphocytes [20-46 21 % %] (01/06/15:22 PM) Monocytes [4-11 %] 15 % *HI* (01/06/15:22 PM) Eosinophils [0-4 %] 2 % (01/06/15:22 PM) Basophils [0-2 %] 1 % (01/06/15:22 PM) Neutro Absolute 3.41 10*3 [1.90-7.00 10*3] (01/06/15 4:22 PM) Lymph Absolute 1.14 10*3 [0.80-3.30 10*3] (01/06/15 4:22 PM) Johnson Absolute 0.81 10*3 [0.30-1.00 10*3] (01/06/15 4:22 PM) Eos Absolute 0.09 10*3 [0.00-0.50 10*3] (01/06/15 4:22 PM) Baso Absolute 0.04 10*3 [0.00-0.20 10*3] (01/06/15 4:22 PM) Chemistry Most recent to 1 oldest [Reference Range]: Sodium Lvl [135-144 140 mEq/L mEq/L] (01/06/15 4:22 PM) Potassium Lvl 4.4 mEq/L [3.5-5.2 mEq/L] [...] PM) eGFR [>60 mL/min] >60 mL/min 1 (01/06/15:22 PM) Calcium Lvl 10.0 mg/dL [8.9-10.5 mg/dL] (01/06/15:22 PM) Albumin Lvl [3.4-4.8 4.1 gm/dL gm/dL] [...] - hyperplastic polyp1 2005 Radical prostatectomy - [place] stage 6 2004 adenocarcinoma2 Prostate biopsy - [...] Released: 03/24/2006 Document Revised: 03/29/2014 Document Reviewed: ExitCare Patient Information 2015 [employer]. This information is not intended to replace advice given to you by your health care provider. Make sure you discuss any questions you have with your health care provider. Follow Up With: Where: When: Deep White [address] [place] [address] Drive; Via [facility] [place] [address] Business (1) Within 3 to 5 days, only if needed Comments: Extracted from: Title: Office Visit Note Author: Deep White MD Date: 01/06/15 Assessment/Plan Atrial fibrillation Benign essential hypertension Episode of syncope Ordered: CBC w/ Differential Comprehensive Metabolic Panel Orders: valsartan, 160 mg 1 tabs, Oral, Daily, 0.5 pill daily., # 90 tabs, 1 Refill(s), Pharmacy: [facility], 1 tabs Oral Daily TSH 3rd Generation Addendum He was advised to reduce Diovan to one half pill daily. CBC, comprehensive metabolic by profile and TSH levels will be checked. He will be scheduled for 24 Holter recording. Cindy Recheck appointment will be scheduled with Dr. Clemente. Neurology consultation will Deep Whitaker also be scheduled. on January 06, 2015 16:39:51 CDT
--- OUTSIDE RECORDS SUMMARY | 2016-07-05 07:10 | XMS REPORT | Referral Summary ---
Author Author [facility] Organization [facility] Address Unknown Phone Unavailable Care Team Providers Care Accessories Repairer Name Role Phone Julianne White Primary Care Physician [phone] Encounter Date(s): 09/22/14 - 09/22/14 [facility] [address] [place] [address] Discharge Diagnosis: Atrial fibrillation Discharge Disposition: [...] - hyperplastic polyp1 2005 Radical prostatectomy - [place] stage 6 2004 adenocarcinoma2 Prostate biopsy - [...]
--- OUTSIDE RECORDS SUMMARY | 2016-07-05 07:10 | XMS REPORT | Referral Summary ---
Author Author [facility] Organization [facility] Address Unknown Phone Unavailable Care Team Providers Care Timber Killer Name Role Phone Julianne White Primary Care Physician [phone] Encounter VC Date(s): 01/11/15 - 01/11/15 [facility], [address] [place] [address] Discharge Disposition: 01-Home or Self Care Attending [...] Refill(s), Pharmacy: [facility], 1 tabs Oral qPM Start Date: 07/22/14 Status: Ordered Results No data available for this section Immunizations Vaccine Date Refusal Reason influenza virus vaccine, inactivated 01/11/15 influenza virus vaccine, inactivated 03/11/14 influenza virus vaccine, live 01/24/12 pneumococcal 23-polyvalent vaccine 08/02/05 tetanus-diphth toxoids (Td) adult/adol 10/12/97 Procedures Procedure Date Related Diagnosis Body Site Colonoscopy - hyperplastic polyp1 2005 Radical prostatectomy - [place] stage 6 2004 adenocarcinoma2 Prostate biopsy - negative3 2000 ORIF - left ankle fracture4 1983 Tonsillectomy 194 Circumcision 1Hyperplastic polyp 2Gleason stage adenocarcinoma 3Negative 4Left ankle Social History Social History Type Response Smoking Status Former smoker; Type: Cigarettes; Tobacco use per day: 1 Pack ; Number of years: 15 Assessment and Plan No data available for this section
--- OUTSIDE RECORDS SUMMARY | 2016-07-05 07:10 | XMS REPORT | Continuity of Care Document ---
Author Author Aileen Chavis CNA Ambulatory Address [address] [facility] [place] [address] Phone Care Team Providers Care Science Center Display Builder Name Role Phone WhiteAnne-Marie villanuevaleopoldo AZUL Unavailable Payers Payer name Insurance type Covered constitution party ID Authorization(s) Unknown Problems Condition Effective Dates (start - stop) Clinical Status Hypertension, Unspecified - *Chronic Rosacea - *Chronic Personal history of malignant neoplasm of prostate - *Chronic Calculus of gallbladder without mention of cholecystitis, without mention of obstruction - *Chronic Influenza Vaccine - Hypertension, Unspecified - *Chronic Rosacea - *Controlled History of prostate cancer - *Chronic Cholelithiasis - *Chronic Hypertension, Unspecified - *Chronic Rosacea - *Chronic Personal history of malignant neoplasm of prostate - *Chronic Calculus of gallbladder without mention of cholecystitis, without mention of obstruction - *Chronic Atrial Fibrillation - *Acute Right Heart Failure - *Acute Hypertension, Unspecified - *Chronic Obesity - *Chronic Personal history of malignant neoplasm of prostate - *Controlled VARICELLA UNCOMPLICATED - OVERWEIGHT - HYPERTENSION NOS - Atrial Fibrillation - *Chronic Right Heart Failure - Improved Hypertension, Unspecified - *Chronic Hypertension, Unspecified - *Chronic Atrial Fibrillation - *Chronic Hypertensive cardiovascular disease - *Chronic Edema extremities - *Chronic Overweight - *Chronic Family History Family Member Diagnosis Age At Onset Status Father (Alive) CVA (Stroke) 65 (cause of ) Yes Mother (Unknown) Hypertension Yes Brother (Alive) Hypertension Yes Mother (Unknown) Alzheimer's Disease Yes Father (Unknown) Hypertension Yes Brother (Unknown) tractor accident Yes Social History Social History Element Description Quantity alcohol beer Allergies, Adverse Reactions, Alerts Substance Reaction Severity Status Unknown Medications Medication Instructions Dosage Effective Dates (start - stop) Status Centrum Silver tablet take daily - Active atenolol 100 mg tablet Take 1 tablet by mouth every day. - Active Cardura 4 mg tablet Take 1 tablet by mouth every day. - Active furosemide 40 mg tablet take 1 tablet (40MG) by oral route every day 40 MG - Active Diovan 160 mg tablet take 1 tablet (160MG) by oral route every day 160 MG - Active potassium chloride ER 20 mEq tablet,extended release(part/cryst) take 1 tablet (20MEQ) by oral route every day with food 20 MEQ - Active Coumadin 1 mg tablet take 3 tablet (1MG) by oral route every day TAKE WITH 5 MG TAB TO EQUAL 8 MG - Active Coumadin 5 mg tablet take 1 Tablet by Oral route every day with 3 tabs of 1mg to equal 8 mg daily. - Active Immunizations Vaccine Date Status Comments Flu (split) (3 yrs or older) completed Td (adult) completed - Completed reason: source unspecified pneumo (2 yrs or older) (PPV23) completed - Completed reason: source unspecified Results Test Name Date and Time Measure Units Reference Range Abnormal Flag Comments Unknown Vital Signs Date / Time: Height Weight Pulse Rate Blood Pressure Temperature /08:45:00 70.50 in 254.00 lbs 80 /min 120/88 mm[Hg] 97.7 F Procedures Procedure Date Unknown Encounters Encounter Location Date Patient Visit [facility] Patient Visit [facility] Patient Visit [facility] Patient Visit [facility] Patient Visit [facility] Patient Visit [facility] Patient Visit [facility] Patient Visit [facility] Patient Visit [facility] Patient Visit [facility] Patient Visit [facility] Advance Directives Directive Effective Date Unknown
--- OUTSIDE RECORDS SUMMARY | 2016-07-05 07:10 | XMS REPORT | Referral Summary ---
Author Author [facility] Organization [facility] Address Unknown Phone Unavailable Care Team Providers Care Crankshaft Straightener Name Role Phone Han Worrell Primary Care Physician [phone] Encounter VC Date(s): 01/10/15 - 01/10/15 [facility] [address] [place] [place] [address] Discharge Disposition: 01-Home or Self Care Attending Physician: Deep White MD Admitting Physician: Deep White MD Vital Signs No [...] - hyperplastic polyp1 2005 Radical prostatectomy - [place] stage 6 2004 adenocarcinoma2 Prostate biopsy - negative3 2000 ORIF - left ankle fracture4 1983 Tonsillectomy 1944 Circumcision 1Hyperplastic polyp 2Gleason stage adenocarcinoma 3Negative 4Left ankle Social History Social History Type Response Smoking Status Former smoker; Type: Cigarettes; Tobacco use per day: 1 Pack ; Number of years: 15 Assessment and Plan Extracted from: Title: Holter Author: Brittney Varner LPN Date: 01/10/[address] Clemente' office called. She stated the tracings from the Holter monitor we not very good and that Dr. Bryn was reccommending pt redo the Holter. Called pt and explained situation and pt agreed to return to repeat Holter.
--- OUTSIDE RECORDS SUMMARY | 2016-07-05 07:10 | XMS REPORT | Referral Summary ---
Author Author [facility] Organization [facility] Address Unknown Phone Unavailable Care Team Providers Care Manager Creative Name Role Phone Julianne White Primary Care Physician [phone] Encounter VC Date(s): 03/06/15 - 03/06/15 [facility] [address] [place] [address] [place] [address] Discharge Disposition: 01-Home or Self Care Attending Physician: Deep White MD Admitting Physician: Deep White MD Referring Physician: Deep White MD Vital [...]
--- OUTSIDE RECORDS SUMMARY | 2016-07-05 07:10 | XMS REPORT | Referral Summary ---
Author Author [facility], [facility] Organization [facility] Address Unknown Phone Unavailable Care Team Providers Care Gasoline Pump Installer Name Role Phone Han Worrell Primary Care Physician [phone] Encounter VC Date(s): 11/16/15 - 11/16/15 [facility] [place] [address]- Discharge Diagnosis: General medical exam Discharge Diagnosis: HTN (hypertension) Discharge Disposition: 01-Home or Self Care Attending Physician: Han Worrell DO Admitting Physician: Han Worrell DO Vital Signs Most recent to 1 oldest [Reference Range]: Temperature Tympanic 35.4 degC [36.6-38.1 degC] *LOW* (11/16/15 8:08 AM) Peripheral Pulse 80 bpm Rate [60-100 bpm] (11/16/15 8:08 AM) Blood Pressure 115/73 mmHg [90-140/60-90 mmHg] (11/16/15 8:08 AM) Problem List Condition Effective Dates Status Health Status Informant Benign prostatic Resolved hypertrophy(Confirme d) CAD (coronary artery Resolved disease)(Confirmed) Chicken Resolved pox(Confirmed) Hypertension(Confirm Resolved ed) Irregular heart Resolved beat(Confirmed) Overweight(Confirmed Resolved ) Persistent atrial Active fibrillation(Confirm ed) Prostate Resolved cancer(Confirmed) Allergies, Adverse Reactions, Alerts No Known Allergies Medications atenolol 100 mg oral tablet See Instructions, TAKE ONE TABLET BY MOUTH DAILY, # 30 tabs, 2 Refill(s), Pharmacy: [facility], TAKE ONE TABLET BY MOUTH DAILY Start Date: 11/13/15 Status: Ordered Centrum Silver oral tablet 1 tabs, Oral, Daily, 0 Refill(s) Start Date: 09/15/13 Status: Ordered Diovan 160 mg oral tablet 160 mg 1 tabs, Oral, Daily, 0.5 pill daily., # 30 tabs, 0 Refill(s), Pharmacy: [facility], 1 tabs Oral Daily,Instr:0.5 pill daily. Start Date: 09/01/15 Status: Ordered doxazosin 4 mg oral tablet See Instructions, TAKE ONE TABLET BY MOUTH DAILY, # 30 tabs, 2 Refill(s), Pharmacy: [facility], TAKE ONE TABLET BY MOUTH DAILY Start Date: 11/13/15 Status: Ordered furosemide 40 mg oral tablet See Instructions, TAKE ONE TABLET BY MOUTH DAILY, # 90 tabs, 0 Refill(s), Pharmacy: [facility], TAKE ONE TABLET BY MOUTH DAILY Start Date: 09/14/15 Status: Ordered potassium chloride 20 mEq oral tablet, extended release See Instructions, TAKE ONE TABLET BY MOUTH DAILY PATIENT NEEDS APPT FOR NEXT MONTH, # 30 tabs, 0 Refill(s), Pharmacy: [facility], TAKE ONE TABLET BY MOUTH DAILY; PATIENT NEEDS APPT FOR NEXT MONTH Start Date: 10/24/15 Status: Ordered Vitamin D3 1000 intl units [...] Most recent to 1 oldest [Reference Range]: Estimated Creatinine 67.94 mL/min Clearance (11/16/15 8:12 AM) Immunizations Vaccine Date Refusal Reason tetanus/diphth/pertuss (Tdap) adult/adol 11/16/15 influenza virus vaccine, inactivated 01/11/15 influenza virus vaccine, inactivated 03/11/14 influenza virus vaccine, live 01/24/12 pneumococcal 13-valent conjugate vaccine 11/16/15 pneumococcal 23-polyvalent vaccine 08/02/05 tetanus-diphth toxoids (Td) adult/adol 10/12/97 Procedures Procedure Date Related Diagnosis Body Site Colonoscopy - hyperplastic polyp1 2005 Radical prostatectomy - [place] stage 6 2004 adenocarcinoma2 Prostate biopsy - negative3 2000 ORIF - left ankle fracture4 1983 Tonsillectomy 1944 Circumcision 1Hyperplastic polyp 2Gleason stage adenocarcinoma 3Negative 4Left ankle Social History Social History Type Response Smoking Status Former smoker; Type: Cigarettes; Tobacco use per day: 1 Pack ; Number of years: 15 Assessment and Plan Extracted from: Title: Office Visit Note Author: Han Worrell DO Date: 11/16/15 Assessment/Plan 1.HTN (hypertension) 1. His blood pressures well controlled. 2. Continue with same blood pressure regimen. 3. Low salt diet recommended. 4. Follow-up in 6 months for blood pressure management. At that time, we plan on repeating his screening labs. Ordered: Office Visit Level 4 Est 29378 2.General medical exam 1. His immunizations were reviewed, he is due for tetanus booster as well as pneumonia and 13. Patient was agreeable and getting immunizations today. 2. I recommended shingles vaccination, he will check with his insurance regarding coverage. Ordered: Office Visit Level 4 Est 32270
--- OUTSIDE RECORDS SUMMARY | 2016-07-05 07:10 | XMS REPORT | Referral Summary ---
Author Author [facility] Organization [facility] Address Unknown Phone Unavailable Care Team Providers Care Library Aide Name Role Phone Julianne White Primary Care Physician [phone] Encounter Date(s): 01/16/15 - 01/16/15 [facility] [address] [place] [address] [place] [address] Discharge Disposition: 01-Home or Self [...] BY MOUTH DAILY, # 90 tabs, eRx: [facility], TAKE ONE TABLET BY [...] Daily, # 90 tabs, 0 Refill(s), Pharmacy: [facility], 1 tabs Oral Daily Start Date: [...] qPM, # 90 tabs, 1 Refill(s), Pharmacy: [facility], 1 tabs Oral qPM Start Date: [...]
--- OUTSIDE RECORDS SUMMARY | 2016-07-05 07:10 | XMS REPORT | Referral Summary ---
Author Author [facility] Organization [facility] Address Unknown Phone Unavailable Care Team Providers Care Chain Hoist Operator Name Role Phone Julianne White Primary Care Physician [phone] Encounter Date(s): 01/13/15 - 01/13/15 [facility] [address] [place] [address] Discharge Diagnosis: Near syncope Discharge Diagnosis: [...] - hyperplastic polyp1 2005 Radical prostatectomy - [place] stage 6 2004 adenocarcinoma2 Prostate biopsy - [...] fibrillation Ordered: Office Visit Level 3 Est 55244 Return to Clinic Referrals to Other Providers Referred by: Vi Clemente MD
--- OUTSIDE RECORDS SUMMARY | 2016-07-05 07:10 | XMS REPORT | Referral Summary ---
Author Author [facility] Organization [facility] Address Unknown Phone Unavailable Care Team Providers Care Outsole Cementer Machine Name Role Phone Julianne White Primary Care Physician [phone] Encounter Date(s): 09/22/14 - 09/22/14 [facility] [address] [place] [place] [address] Discharge Diagnosis: Atrial fibrillation Discharge [...]
--- OUTSIDE RECORDS SUMMARY | 2016-07-05 07:10 | XMS REPORT | Referral Summary ---
Author Author [facility], [facility] Organization [facility] Address Unknown Phone Unavailable Care Team Providers Care Coach Cleaner Name Role Phone Han Worrell Primary Care Physician [phone] Encounter VC Date(s): 05/15/15 - 05/15/15 [facility], [address] [place] [address]- Discharge Disposition: 01-Home or Self Care Attending Physician: Han Worrell DO Admitting Physician: Han Worrell DO Vital Signs Most recent to 1 oldest [Reference Range]: Temperature Tympanic 35.9 degC [36.6-38.1 degC] *LOW* (05/15/15 10:17 AM) Peripheral Pulse 72 bpm Rate [60-100 bpm] (05/15/15 10:17 AM) Blood Pressure 118/80 mmHg [90-140/60-90 mmHg] (05/15/15 10:17 AM) Problem List Condition Effective Dates Status [...] 30 tabs, 0 Refill(s), Pharmacy: [facility], TAKE ONE TABLET BY MOUTH DAILY Start Date: 04/18/15 Status: Ordered Centrum Silver oral tablet 1 tabs, Oral, Daily, 0 Refill(s) Start Date: 09/15/13 Status: Ordered doxazosin 4 mg oral tablet See Instructions, TAKE ONE TABLET BY MOUTH DAILYKeep appt for est care*, # 30 tabs, 0 Refill(s), Pharmacy: [facility], TAKE ONE TABLET BY MOUTH DAILYKeep appt [...] 1 oldest [Reference Range]: Sodium Lvl [135-144 144 mEq/L mEq/L] (05/15/15 10:50 AM) Potassium Lvl 4.1 mEq/L [3.5-5.2 mEq/L] (05/15/15 10:50 AM) Chloride [99-111 108 mEq/L mEq/L] (05/15/15 10:50 AM) CO2 [23-31 mEq/L] 29 mEq/L (05/15/15 10:50 AM) AGAP [3-20] 7 (05/15/15 10:50 AM) BUN [8-26 mg/dL] 16 mg/dL (05/15/15 10:50 AM) Glucose Lvl [70-99 103 mg/dL mg/dL] *HI* (05/15/15 10:50 AM) Creatinine Lvl 0.97 mg/dL [0.72-1.25 mg/dL] (05/15/15 10:50 AM) eGFR [>60 mL/min] >60 mL/min 1 (05/15/15 10:50 AM) Calcium Lvl 10.2 mg/dL [8.9-10.5 mg/dL] (05/15/15 10:50 AM) Magnesium Lvl 2.4 mg/dL [1.6-2.6 mg/dL] (05/15/15 10:50 AM) Chol [0-199 mg/dL] 164 mg/dL (05/15/15 10:50 AM) Trig [0-149 mg/dL] 52 mg/dL (05/15/15 10:50 AM) HDL [40-84 mg/dL] 49 mg/dL (05/15/15 10:50 AM) LDL [0-130 mg/dL] 105 mg/dL (05/15/15 10:50 AM) VLDL Cholesterol 10 mg/dL [0-28 mg/dL] (05/15/15 10:50 AM) Cardiac Risk 3.3 [0.0-5.7] (05/15/15 10:50 AM) 1Result Comment: Multiply eGFR results by [...] Visit Note Author: Han Worrell DO Date: 05/15/15 Assessment/Plan Chronic a-fib 1. Continue with Xarelto as previous. 2. Continue with recommendations as per harbor master. 3. Follow-up in 6 months for reevaluation. Ordered: Basic Metabolic Panel Lipid Panel Magnesium Level Office Visit Level 4 Est 96345 Dependent edema 1. The dependent edema is well controlled at this time. 2. Low salt diet recommended. 3. Continue with Lasix and potassium as previous. Ordered: Office Visit Level 4 Est 30471 Well-controlled hypertension 1. Blood pressures well controlled. 2. Recommendations as above. 3. We'll refill his medication as needed. 4. Follow up in 6 months for reevaluation. Ordered: Basic Metabolic Panel Lipid Panel Magnesium Level Office Visit Level 4 Est 41429
--- OUTSIDE RECORDS SUMMARY | 2016-07-05 07:10 | XMS REPORT | Referral Summary ---
Author Author [facility] Organization [facility] Address Unknown Phone Unavailable Care Team Providers Care Pharmacy Services Representative Name Role Phone Julianne White Primary Care Physician [phone] Encounter VC Date(s): 01/10/15 - 01/10/15 [facility] [address] [place] [id number] Discharge Disposition: 01-Home or Self Care [...] we not very good and that Dr. Clemente was reccommending pt redo the Holter. Called pt and explained situation and pt agreed to return to repeat Holter.
--- OUTSIDE RECORDS SUMMARY | 2016-07-05 07:10 | XMS REPORT | Referral Summary ---
Author Author [facility] Organization [facility] Address Unknown Phone Unavailable Care Team Providers Care Psychiatric Registered Nurse Name Role Phone Julianne White Primary Care Physician [phone] Encounter Date(s): 01/13/15 - 01/13/15 [facility] [address] [place] [id number] Discharge Diagnosis: Near syncope Discharge Diagnosis: [...] - hyperplastic polyp1 2005 Radical prostatectomy - [place] stage 6 2004 adenocarcinoma2 Prostate biopsy - [...] fibrillation Ordered: Office Visit Level 3 Est 79431 Return to Clinic Referrals to Other Providers Referred by: Vi Clemente MD
--- OUTSIDE RECORDS SUMMARY | 2016-07-05 07:11 | XMS REPORT | Referral Summary ---
Author Author [facility] Organization [facility] Address Unknown Phone Unavailable Care Team Providers Care Field Service Manager Name Role Phone Julianne White Primary Care Physician [phone] Encounter Date(s): 01/13/15 - 01/13/15 [facility] [address] [place] [place] [id number] Discharge Diagnosis: Near syncope Discharge [...] 90 tabs, 0 Refill(s), Pharmacy: [facility], Patient will need follow up appointment prior [...] fibrillation Ordered: Office Visit Level 3 Est 13052 Return to Clinic Referrals to Other Providers Referred by: Vi Clemente MD
--- OUTSIDE RECORDS SUMMARY | 2016-07-05 07:11 | XMS REPORT | Referral Summary ---
Author Author [facility] Organization [facility] Address Unknown Phone Unavailable Care Team Providers Care Alodize Machine Operator Name Role Phone Julianne White Primary Care Physician [phone] Encounter Date(s): 09/22/14 - 09/22/14 [facility] [address] [place] [id number] Discharge Diagnosis: Atrial fibrillation Discharge [...]
--- OUTSIDE RECORDS SUMMARY | 2016-07-05 07:11 | XMS REPORT | Referral Summary ---
Author Author [facility] Organization [facility] Address Unknown Phone Unavailable Care Team Providers Care Manufacturing Mechanic Name Role Phone Julianne White Primary Care Physician [phone] Encounter Date(s): 09/22/14 - 09/22/14 [facility] [address] [place] [place] [address] Discharge Diagnosis: Atrial fibrillation Discharge [...]
--- OUTSIDE RECORDS SUMMARY | 2016-07-05 07:11 | XMS REPORT | Referral Summary ---
Author Author [facility] Organization [facility] Address Unknown Phone Unavailable Care Team Providers Care Blemish Remover Name Role Phone Han Worrell Primary Care Physician [phone] Encounter VC Date(s): 01/24/16 - 01/24/16 [facility] [address] [place] [place] [id number] Discharge Diagnosis: Persistent atrial fibrillation Discharge Disposition: 01-Home or Self Care Attending Physician: Vi Clemente MD Admitting Physician: Vi Clemente MD Referring Physician: Deep White MD Vital Signs Most recent to 1 oldest [Reference Range]: Peripheral Pulse 70 bpm Rate [60-100 bpm] (01/24/16 11:14 AM) Blood Pressure 140/90 mmHg [90-140/60-90 mmHg] (01/24/16 11:14 AM) Problem List Condition Effective Dates Status [...] ONE TABLET BY MOUTH DAILY Start Date: 12/12/15 Status: Ordered potassium chloride 20 mEq oral tablet, extended release See Instructions, TAKE ONE TABLET BY MOUTH DAILY, # 30 tabs, 2 Refill(s), Pharmacy: [facility], TAKE ONE TABLET BY MOUTH DAILY Start Date: 12/05/15 Status: Ordered valsartan 160 mg oral tablet 80 mg 0.5 tabs, Oral, Daily, 0 Refill(s) Start Date: 01/24/16 Status: Ordered Vitamin D3 1000 intl units oral capsule 1,000 Intl_Units 1 caps, Oral, Daily, # 100 caps, 0 Refill(s) Start Date: 01/06/15 Status: Ordered Xarelto 20 mg oral tablet See Instructions, TAKE ONE TABLET BY MOUTH IN THE EVENING, # 90 tabs, 3 Refill(s ), Pharmacy: [facility], TAKE ONE TABLET BY MOUTH IN THE EVENING Start Date: 01/24/16 Status: Ordered Results No data available for this section Immunizations Vaccine Date Refusal Reason tetanus/diphth/pertuss (Tdap) adult/adol 11/16/15 influenza virus vaccine, inactivated 01/11/15 influenza virus vaccine, inactivated 03/11/14 influenza virus vaccine, live 01/24/12 pneumococcal 13-valent conjugate vaccine 11/16/15 pneumococcal 23-polyvalent vaccine 08/02/05 tetanus-diphth toxoids (Td) adult/adol 10/12/97 Procedures Procedure Date Related Diagnosis Body Site Colonoscopy - hyperplastic polyp1 2005 Radical prostatectomy - [place] stage 6 2004 adenocarcinoma2 Prostate biopsy - negative3 2000 ORIF - left ankle fracture4 1983 Tonsillectomy 1944 Circumcision 1Hyperplastic polyp 2Gleason stage adenocarcinoma 3Negative 4Left ankle Social History Social History Type Response Smoking Status Former smoker; Type: Cigarettes; Tobacco use per day: 1 Pack ; Number of years: 15 Assessment and Plan Referrals to Other Providers Referred by: Vi Clemente MD
--- OUTSIDE RECORDS SUMMARY | 2016-07-05 07:11 | XMS REPORT | Referral Summary ---
Author Author [facility] Organization [facility] Address Unknown Phone Unavailable Care Team Providers Care Sports Team Manager Name Role Phone Han Worrell Primary Care Physician [phone] Encounter VC Date(s): 08/25/15 - 08/25/[address] [address] [facility] [address] [facility] [address] [place], [place] [address] Discharge Diagnosis: Staring spell Discharge Disposition: 01-Home or Self Care Attending Physician: Chadd Guzman MD Admitting Physician: Chadd Guzman MD Vital Signs Most recent to 1 oldest [Reference Range]: Peripheral Pulse 60 bpm Rate [60-100 bpm] (08/25/15 1:19 PM) Blood Pressure 132/74 mmHg [90-140/60-90 mmHg] (08/25/15 1:19 PM) Problem List Condition Effective Dates Status [...] ONE TABLET BY MOUTH DAILY Start Date: 08/15/15 Status: Ordered Centrum Silver oral tablet 1 tabs, Oral, Daily, 0 Refill(s) Start Date: 09/15/13 Status: Ordered Diovan 160 mg oral tablet 160 mg 1 tabs, Oral, Daily, 0.5 pill daily. MUST MAKE AN APPT WITH NEW PCP FOR ANY REFILLS, # 30 tabs, 0 Refill(s), Pharmacy: [facility], 1 tabs Oral Daily, Instr:0.5 pill daily. MUST MAKE AN APPT WITH NEW PCP FOR ANY REFILLS Start Date: 07/04/15 Status: Ordered doxazosin 4 mg oral tablet See Instructions, TAKE ONE TABLET BY MOUTH DAILY, # 30 tabs, 2 Refill(s), Pharmacy: [facility], TAKE ONE TABLET BY MOUTH DAILY Start Date: 08/15/15 Status: Ordered furosemide 40 mg oral tablet [...] - hyperplastic polyp1 2005 Radical prostatectomy - [place] stage 6 2004 adenocarcinoma2 Prostate biopsy - negative3 2000 ORIF - left ankle fracture4 1983 Tonsillectomy 1944 Circumcision 1Hyperplastic polyp 2Gleason stage adenocarcinoma 3Negative 4Left ankle Social History Social History Type Response Smoking Status Former smoker; Type: Cigarettes; Tobacco use per day: 1 Pack ; Number of years: 15 Assessment and Plan Extracted from: Title: Neurology follow-up Author: Chadd Guzman MD Date: 08/25/15 Assessment/Plan 1.Staring spell Unknown etiology Do not sound like seizures Possibly hypotension MRI brain and EEG normal No need for further workup and treatment as the spells have resolved Time spent with the patient: 10min with greater than 50% of the office visit spent in counseling the patient, coordination of care, reviewing diagnostic studies, treatment options, follow up plan, and answering the patient's questions. No need for routine follow up but I will be happy to schedule a follow up appointment if the patient and/or the PCP wish so.
--- OUTSIDE RECORDS SUMMARY | 2016-07-05 07:11 | XMS REPORT | Referral Summary ---
Author Author [facility] Organization [facility] Address Unknown Phone Unavailable Care Team Providers Care Commercial Intern Name Role Phone aHn Worrell Primary Care Physician [phone] Encounter VC Date(s): 01/16/15 - 01/16/15 [facility] [address] [place] [id number] Discharge Disposition: 01-Home or Self Care [...]
--- OUTSIDE RECORDS SUMMARY | 2016-07-05 07:11 | XMS REPORT | Referral Summary ---
Author Author [facility] Organization [facility] Address Unknown Phone Unavailable Care Team Providers Care Pulp Bleacher Name Role Phone Julianne White Primary Care Physician [phone] Encounter Date(s): 01/13/15 - 01/13/15 [facility] [address] [place] [id number] Discharge Diagnosis: Near syncope Discharge Diagnosis: [...] - hyperplastic polyp1 2005 Radical prostatectomy - [place] stage 6 2004 adenocarcinoma2 Prostate biopsy - [...] fibrillation Ordered: Office Visit Level 3 Est 14945 Return to Clinic Referrals to Other Providers Referred by: Vi Clemente MD
--- OUTSIDE RECORDS SUMMARY | 2016-07-05 07:11 | XMS REPORT | Referral Summary ---
Author Author [facility] Organization [facility] Address Unknown Phone Unavailable Care Team Providers Care Emergency Management Consultant Name Role Phone Julianne White Primary Care Physician [phone] Encounter Date(s): 09/22/14 - 09/22/14 [facility] [address] [place] [id number] Discharge Diagnosis: Atrial fibrillation Discharge Disposition: 01-Home [...]
[2016-07-05 07:30] VITALS: BP 158/102; PULSE 89; RESP 14; TEMP 97.6; O2SAT 93
[2016-07-05] MEDS: FLEET PHOSPHO-SODA 133 ML ENEMA RECTALLY PRN ×2 (07:33→07:45)
--- NOTE | 2016-07-05 07:33 | ANESPREOP ---
Anesthesia Record Date and Time DATE: 07/05/16 TIME: 07:30 Pre-Op Diagnosis crcs Proposed Surgical Procedure COLONOSCOPY Allergies: Coded Allergies: No Known Allergies (Unverified , 07/03/13) Ht/Wt/BMI Height: 5 ' 11.00 " Weight: 110.400 kg BMI: 34.0 kg/m2 Medications Inpatient Medications Current Medications Medications (Trade) Dose Ordered Sig/Rg Start Time Stop Time Status Last Admin Dose Admin Lactated Ringer's (Lactated Ringers) 1,000 ml @ 30 mls/hr Q24H 07/05/16 07:00 Atenolol (Atenolol) 25 Mg Tablet, 1 TAB PO DAILY, (Reported) Doxazosin Mesylate (Cardura) 1 Mg Tablet, 1 TAB PO DAILY, (Reported) Furosemide (Furosemide) 20 Mg Tablet, 1 TAB PO DAILY, (Reported) Potassium Gluconate (Potassium) 99 Mg Tablet, 1 TAB PO DAILY, (Reported) Rivaroxaban (Xarelto) 20 Mg Tablet, 20 MG PO WS, (Reported) Take 1 tablet, by mouth, daily with evening meal. Last Taken: on 06/28/16 Valsartan (Diovan) 40 Mg Tablet, 1 TAB PO DAILY, ( Reported) Currently on Beta Arnulfo: Yes Beta Arnulfo Last Taken: ATENOLOL AT 0600 ON 07/05/16 Medical/Surgical History Anesthesia PMH: Reports: *Hypertension, Cancer (PROSTATE), Obesity, Denies: * Diabetes, *VA, Anesthesia Reactions (NO AIRWAY ISSUES), Arthritis, Asthma, Blood Transfusion Reac, CHF, COPD, CVA/Stroke/TIA, Clotting Problems, Glaucoma, Malignant Hyperthermia, Renal Disease, Seizures, Sleep Apnea, Thyroid Disease Smoking Status: Former smoker Has pt. smoked today?: No Use Chewing Tobacco?: No Second Hand Exposure: No Substance Use Type: does not use Substance last used: unknown Alcohol Intake: a few times a week Last Drink: unknown Past Surgical History Orthopedic Surgeries: Yes - ORIF ANKLE Abdominal Surgeries: No Genitourinary Surgeries: Yes - PROSATE REMOVED Cardiac Surgeries: No Endocrine Surgeries: No Reproductive Surgeries: No Neurological Surgeries: No Ear Surgeries: No Nose Surgeries: No Throat Surgeries: Yes - T&A Other Surgeries: Yes - COLONOSCOPY Anesthesia Adverse Reactions: FOUND none Family Hx of Anesthesia Advers: none Hx of Motion Sickness: No Pertinent Findings EKG Rhythm: Atrial Fibrillation Physical Exam Respiratory: Bilat breath sounds equal, Lungs clear Cardiovascular: FOUND Regular rate, rhythm, FOUND No murmur Airway Assessment Mallampati Score: II TMD: 2 Fingerbreadths Neck Extension: Fair Overall Assessment: May Be Diff Mask Vent., May Be Diff Intubation ASA: 2 Plan Anesthesia Plan: TIVA Discussion Discussed risks/options/alternatives of anesthesia and questions answered. Patient consents. Nursing pain assessment noted. Present: Children Attestation Statement Prior to the delivery of any anesthetic medication, I examined the patient, developed the plan, obtained the patient's consent and discussed the risk and benefits of the procedure with the patient/guardian. RUBIN WOOD CRNA Jul 05, 2016 07:33
[2016-07-05] MEDS ORDERED: VITA-297 PO (07:37)
[2016-07-05] MEDS ORDERED: FOLI-75 PO (07:37)
[2016-07-05] MEDS ORDERED: LIDOCAINE 1% (10mg/ml) 2ml SDV ONE (08:57)
[2016-07-05] MEDS ORDERED: PROPOFOL 500mg 50 ML IV ONE (08:57)
[2016-07-05] MEDS ORDERED: PROPOFOL 200mg 20 ML IV ONE (09:33)
[2016-07-05 09:46] VITALS: BP 131/86; PULSE 62; RESP 14; TEMP 97.4; O2SAT 94
[2016-07-05 10:01] VITALS: BP 108/78; PULSE 70; RESP 16; O2SAT 94
[2016-07-05 10:16] VITALS: BP 135/83; PULSE 64; RESP 16; O2SAT 95
--- NOTE | 2016-07-05 10:30 | ANESPO ---
Post-Op Note Date 07/05/16 Time: 10:29 Status Pt Participated in Evaluation: Pt participated in person Vital Signs Date Time Temp Pulse Resp B/P Pulse Ox O2 Delivery O2 Flow Rate FiO2 07/05/16 10:16 64 16 135/83 95 Room Air 07/05/16 09:46 97.4 Respiratory Function: Airway patent, Regular respirations Cardiovascular Function: Regular pulse Mental Status: Alert/oriented Pain Level Intensity: 0 (0) Hydration: Taking po fluids Complications during Recovery None apparent Post-Anesthesia Notes pt. alexia. well Follow-Up Instructions Instructions Per Surgeon Additional Information none RUBIN WOOD CRNA Jul 05, 2016 10:30
[2016-07-05 10:31] VITALS: BP 150/91; PULSE 66; RESP 16; O2SAT 93
--- NOTE | 2016-07-05 15:09 | OPNOTEF ---
DATE OF SERVICE 07/05/2016 SURGEON David Irby MD PREOPERATIVE DIAGNOSIS Colorectal cancer surveillance. POSTOPERATIVE DIAGNOSIS Colorectal cancer surveillance, multiple colonic polyps located at 15 cm x3, 20 cm x2, 30 cm x1, hepatic flexure x1, mid ascending colon x1, proximal ascending colon x2. Sigmoid diverticulosis. PROCEDURE Colonoscopy with multiple polypectomies via cold biopsy technique and snare polypectomy technique. ANESTHESIA TIVA BRIEF HISTORY/INDICATIONS Mr. Alexander is a 75-year-old gentleman who presents today to [facility] to undergo a colonoscopy to serve as a portion of his overall colorectal cancer surveillance. For completeness please refer to notes included in the patient's chart. FINDINGS Upon colonoscopy patient was found to have numerous diverticula within the sigmoid colon. Additionally he was found to have multiple colonic polyps that ranged on the order of about 5 mm up to perhaps 1.5 cm in dimension. Each polyp was removed in its entirety either via cold biopsy technique or snare polypectomy technique. There was no evidence for angiodysplastic lesions or patrick malignancies. DESCRIPTION OF PROCEDURE After informed consent was obtained, patient was brought to the endoscopy suite and placed on the table in left lateral decubitus position. The patient subsequently underwent total intravenous anesthesia by the nurse maintainability engineer at my request. A formal time-out was then completed. Next a digital rectal examination was performed. Normal sphincter tone. No rectal masses were appreciated. An Olympus colonoscope was inserted in the anus and advanced up to about 20 cm from the anal verge where two diminutive appearing colonic polyps were identified that were on the order of about 5 mm in diameter and removed in their entirety via cold biopsy technique. Colonoscope was then continued to be advanced up to about the hepatic flexure where an additional synchronous polyp that was also fairly diminutive in nature and on the order of about 5-6 mm in diameter was identified. This polyp was also removed in its entirety via cold biopsy technique. Scope was then continued to be advanced until the cecum was ascertained. Triangulation of the teniae coli, ileocecal valve and the appendiceal were all visualized. Scope was then slowly withdrawn back into the proximal ascending colon. The patient was found to have two polyps that were on the order of about a centimeter in dimension. Both polyps were removed in their entirety via snare polypectomy technique and suctioned into a colonic trap to be submitted for pathologic evaluation. Scope was withdrawn back to the mid ascending colon where an additional/synchronous polyp was identified that was on the order of about 8 mm in diameter which was also removed in its entirety via snare polypectomy technique and suctioned into the colonic trap to be submitted for pathologic evaluation. Scope was then continued to be withdrawn where an additional polyp was identified at 30 cm from the anal verge that was on the order of about 8 mm in diameter and which was removed in its entirety via snare polypectomy technique. This was also placed within a separate container for pathologic evaluation. Scope was then withdrawn back to 15 cm from the anal verge where the patient was found to have a total of three polyps. Two of these polyps were fairly close to one another and were located just behind a haustral fold. Polyps were removed in their entirety via snare polypectomy technique. There was some residual mucosa that also appeared somewhat villous -like near the polypectomy site. This tissue was also excised in its entirety via the snare polypectomy technique and suctioned into a colonic trap. The three polyps were placed within a single container. A J-maneuver was then performed. No worrisome perianal pathology was noted. Scope was allowed to straighten and withdrawn through the anal verge. The patient tolerated the procedure without difficulty and was sent back to the preop area in stable condition. Await the biopsy results from today's multiple polypectomies and proceed accordingly with further recommendations thereafter. SHASHI
== END 2016-07-05 10:36 | disposition home or self-care (01) ==
LOC: NSC 06:57
PROVIDERS: ATTEND Surgery
DX: Z12.11 Encounter for screening for malignant neoplasm of colon (principal); D12.2 Benign neoplasm of ascending colon; D12.6 Benign neoplasm of colon, unspecified; K57.30 Diverticulosis of large intestine without perforation or abscess without bleeding; I48.1 Persistent atrial fibrillation; Z79.02 Long term (current) use of antithrombotics/antiplatelets; I10 Essential (primary) hypertension; I25.10 Atherosclerotic heart disease of native coronary artery without angina pectoris; N40.0 Benign prostatic hyperplasia without lower urinary tract symptoms; E66.3 Overweight; Z68.33 Body mass index [BMI] 33.0-33.9, adult; Z79.899 Other long term (current) drug therapy; Z87.891 Personal history of nicotine dependence
CPT/HCPCS: 45380; 45385; A9270; J2704; J7120